=== PATIENT | female | born 1995 | race Caucasian/White ===

== ENCOUNTER 2020-09-09 11:49 | Emergency (ER) | payer OTHER, SELFPAY ==
[2020-09-09 12:03] VITALS: BP 109/76; PULSE 85; RESP 18; TEMP 36.6; O2SAT 100
[2020-09-09 12:09] VITALS: BP 109/76; PULSE 85; RESP 18; TEMP 36.6; O2SAT 100
--- NOTE | 2020-09-09 12:29 | ED.URI ---
HPI - URI/Sore Throat General Chief Complaint: Upper Respiratory Infection Stated Complaint: Head Pain,Stuffy Nose Time Seen by Provider: 09/09/20 12:08 Source: patient and RN notes reviewed Mode of arrival: ambulatory Limitations: no limitations History of Present Illness HPI Narrative: Patient presents today with 3-day history of nasal congestion, headache, mild cough. She also reports some left ear pain in the canal after she cleaned it out yesterday with her fingernail after swimming. Denies sore throat. 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 They were not diagnosed with anything specific and have since gotten better. She has not been vaccinated against COVID-19. She is been taking DayQuil, NyQuil, and Mucinex without relief. Patient is 1 day late on her menstrual cycle and states she may be . MD elicited complaint: nasal congestion Related Data Home Medications Medication Instructions Recorded Confirmed No Home Medications 09/09/20 09/09/20 Allergies Allergy/AdvReac Type Severity Reaction Status Date / Time No Known Allergies Allergy Verified 09/09/20 12:08 Review of Systems Review of Systems: Narrative: CONSTITUTIONAL: Denies body aches, fever, chills, or sweats. EYES: Denies visual changes, redness, or discharge. ENT: Denies rhinorrhea, sore throat..+ Congestion, left external ear pain CARDIOVASCULAR: Denies chest pain, palpitations, or edema. RESPIRATORY: Denies dyspnea.+ Cough GASTROINTESTINAL: Denies abdominal pain, nausea, vomiting, or diarrhea. GENITOURINARY: Denies dysuria or hematuria. SKIN: Denies rash, itching, or wounds. MUSCULOSKELETAL: Denies back pain, joint pain, or myalgia. NEUROLOGIC: Denies numbness, tingling, or weakness.+ Headache PSYCH: Denies depression or anxiety. PMFSH Comments At time of signature, I have reviewed and agree with nursing past medical, surgical, social and family history unless otherwise noted. Please see nursing chart for further information. There is no relevant family history pertinent to the presenting complaint Exam Narrative: Exam Narrative: GENERAL: Well-appearing, well-nourished, and in no acute distress. HEAD: Normocephalic, atraumatic. EYES: EOMI. No redness or drainage. Conjunctivae normal. ENT: Mucous membranes pink and moist. Nares congested. No rhinorrhea. Right TM normal. Left TM occluded with cerumen impaction. Left ear canal and external ear normal. Throat normal. Uvula midline. NECK: Normal AROM. Supple. No lymphadenopathy. CHEST: No respiratory distress. Clear to auscultation. HEART: Regular rate and rhythm. No murmur appreciated. Normal peripheral pulses. EXTREMITIES: Normal range of motion. No edema. SKIN: Warm, dry, no rash. Capillary refill normal. Normal skin turgor. NEURO: No focal deficits. Alert and oriented x3. Gait steady. PSYCH: Normal affect. No signs of depression or anxiety. Course Vital Signs Vital signs: Vital Signs Temperature 97.9 F 09/09/20 12:03 Pulse Rate 85 09/09/20 12:03 Respiratory Rate 18 09/09/20 12:03 Blood Pressure 109/76 09/09/20 12:03 Pulse Oximetry 100 09/09/20 12:03 Temperature 97.9 F 09/09/20 12:09 Pulse Rate 85 09/09/20 12:09 Respiratory Rate 18 09/09/20 12:09 Blood Pressure 109/76 09/09/20 12:09 Pulse Oximetry 100 09/09/20 12:09 Reviewed Procedures Ear Wax Removal Left Ear: Ear Wax Removal Date: 09/09/20 Ear Wax Removal Time: 12:30 Results: Re-examined: some cerumen remains (Procedure stopped upon patient's request.) TM Examination: other (Unable to visualize) Patient Tolerated Procedure: well Complications: pain Technique: ear canal curetted MDM - URI/Sore Throat Differential Diagnosis Differential diagnosis: Likely upper respiratory infection, sinusitis and bronchitis Critical Care Time Critical Care Time Critical Care Time: No Discharge Plan
== END 2020-09-09 12:35 | disposition home or self-care (01) ==
PROVIDERS: Emergency Provider Nurse Practitioner; PCP Family Medicine
DX: H61.22 Impacted cerumen, left ear (principal); J06.9 Acute upper respiratory infection, unspecified
CPT/HCPCS: 69210; 99202; G0463